=== PATIENT | female | born 1960 | race African-American/Black ===

== ENCOUNTER 2017-03-07 02:46 | Emergency (ER) | payer BC ==
[2016-01-11 13:01] VITALS: BMI 50.5
[~2017-03-07 02:46] MED LIST: BETAPACE 80 MG80 MG PO; BETIMOL15 ML EACH EYE; K-DUR20 MEQ PO; LASIX40 MG PO; NORVASC10 MG PO; TENORMIN50 MG PO; TRAVATAN Z2.5 ML EACH EYE; ZESTORETIC 20/21 TAB PO
== END 2017-03-07 04:07 | disposition home or self-care (01) ==
LOC: D.ER 02:46
DX: T14.8 Other injury of unspecified body region (principal); X58.XXXA Exposure to other specified factors, initial encounter; Y93.89 Activity, other specified; Y92.89 Other specified places as the place of occurrence of the external cause; I10 Essential (primary) hypertension; I50.9 Heart failure, unspecified; G47.30 Sleep apnea, unspecified

== ENCOUNTER → 2018-09-24 18:11 | Outpatient (CLI) | payer BC ==
[2016-01-11 13:01] VITALS: BMI 50.5
== END | disposition home or self-care (01) ==
LOC: D.MAMMO 10:15
DX: Z12.31 Encounter for screening mammogram for malignant neoplasm of breast (principal)

== ENCOUNTER → 2019-05-27 12:59 | Outpatient (CLI) | payer BC ==
[2016-01-11 13:01] VITALS: BMI 50.5
--- NOTE | ~2019-05-27 | EC ---
PATIENT:FRANKLIN OLIVAS DATE OF SERVICE: 05/27/19 SEX: F MEDICAL RECORD: [id number] DATE OF : 60 LOCATION:[facility] AGE OF PATIENT: 58 ADMISSION DATE: 05/27/19 REFERRING PHYSICIAN: INTERPRETING PHYSICIAN: HONG WINKLER MD ECHOCARDIOGRAM REPORT ECHO CHARGES 4 ECHO COMPLETE Date: 05/27/19 CLINICAL DIAGNOSIS: MR H/O A-FIB/HTN ECHOCARDIOGRAPHIC MEASUREMENTS (adult normal given) AC root (d.<3.7cm) 2.5 cm LV Septum d (<1.2 cm> 1.3 cm Valve Excursion 1.4 cm LV Septum (systole) 1.8 cm Left Atria (s.<4.0cm> 4.6 cm LVPW d(<1.2cm) 1.2 cm RV (d.<2.3cm) 2.7 cm LVPW (sytole) 1.5 cm LV diastole(<5.6CM) 2.2 cm MV E-F(>70mm/sec) cm LV systole 0.6 cm LVOT Diameter 2.3 cm MV exc.(>10mm) cm Est.ejection fraction (50-75%) % DOPPLER: LVIT cm/sec A 56.0 cm/sec E 64.0 cm/sec LA cm/sec RVSP 19.2 mmHg LVOT 111 cm/sec AOP1/2T m/s Asc. Ao 159 cm/sec RVOT 47.0 cm/sec RA cm/sec PA 121 cm/sec AV Gradient Peak 10.1 mmHg AV Mean 5.2 mmHg AV Area 3.7 cm MV Gradient Peak 3.6 mmHg MV Mean 1.4 mmHg MV Area cm COMMENTS: OP - HC Residential Energy Auditor: Travon AMADOOE Scratch Polisher: 1 Dr. Winkler TAPE# PACS Pericardial Effusion N DATE OF SERVICE: 05/27/2019 FINDINGS: 1. Left ventricular chamber size is within normal limits. Left ventricular systolic function is normal. Overall ejection fraction is estimated at 55%. 2. Left ventricular hypertrophy is present and concentric with no evidence of outflow tract hypertrophy. 3. Left atrium is enlarged at 4.6 cm. Right atrium and right ventricular chamber sizes are as well mildly dilated. 4. Valvular structures have normal structure and motion. ECHOCARDIOGRAM REPORT [id number] RFANKLIN OLIVAS 5. Doppler interrogation reveals no significant valvular insufficiency or stenosis. 6. No evidence of pericardial effusion or left ventricular thrombus. TRANSINT:[id number] Voice Confirmation ID: [id number] DOCUMENT ID: [id number] HONG WINKLER MD CC: [id number] DICTATION DATE: 05/27/19 145 DOORKEEPER: 05/27/[address] [facility] [address] [id number]
== END | disposition home or self-care (01) ==
LOC: D.HCCARDIO 12:59
PROVIDERS: ATTEND Internal Medicine Interventional Cardiology
DX: I34.0 Nonrheumatic mitral (valve) insufficiency (principal); I48.91 Unspecified atrial fibrillation; I10 Essential (primary) hypertension

== ENCOUNTER 2020-07-25 06:20 | Day surgery (SDC) | payer BC ==
[2020-07-22 12:30] LABS: BASOPHILS 0.1 % (0-2); HEMATOCRIT 43.1 % (36.0-48.0); HEMOGLOBIN 13.7 g/dL (12-16); IMMATURE GRANULOCYTES 0.1 % (0-5); LYMPHOCYTES 31.1 % (15-50); MCH 30.2 pg (26.0-34.0); MCHC 31.8 g/dL (31.0-37.0); MCV 94.9 fL (80.0-100.0); MEAN PLATELET VOLUME 9.6 fL (7.4-10.4); MONOCYTES 10.1 % (2-11); NEUTROPHILS 54.6 % (40-80); PLATELET COUNT 236 10x3/uL (130-400); RBC 4.54 10x6/uL (4.00-5.40); RDW 14.3 % (11.5-14.5); WBC 7.2 10x3/uL (4.8-10.8)
[2020-07-22 12:47] LABS: ANION GAP 6.9 mmol/L (8-16); CALCIUM 9.3 mg/dL (8.5-10.1); CARBON DIOXIDE 32.8 mmol/L (21.0-32.0); POTASSIUM - SERUM 4.7 mmol/L (3.5-5.1)
[~2020-07-25] VITALS: Ht 152.4 cm; Wt 116.1 kg
--- NOTE | ~2020-07-25 | OP ---
PATIENT NAME: FRANKLIN OLIVAS MEDICAL RECORD: [id number] :60 LOCATION:[facility] ADMISSION DATE: SURGEON: ULYSSES SCHMITT MD DATE OF OPERATION: 07/25/2020 PREOPERATIVE DIAGNOSIS: Postmenopausal bleeding. POSTOPERATIVE DIAGNOSIS: Postmenopausal bleeding. PROCEDURE: Exam under anesthesia. SURGEON: Ulysses Schmitt MD WORKFORCE MANAGEMENT COORDINATOR: BLANKA Long. ANESTHESIA: Ethan ANESTHESIOLOGIST: Dr. Cabezas ANESTHETIC: LMA. FINDINGS: Vaginal vault is unremarkable. Redundant tissue in the vaginal vault prevented adequate visualization of the cervix despite use of various technique and speculum sizes. SPECIMENS REMOVED: None. SPECIMEN DISPOSITION: None applicable. ESTIMATED BLOOD LOSS: Less than 500 cc of lactated Ringer's. URINE OUTPUT: Quantity sufficient void prior to this procedure. COMPLICATIONS: None. ESTIMATED BLOOD LOSS: None. INDICATIONS: The patient is a 60-year-old female with persistent postmenopausal bleeding and unable to perform endometrial biopsy in clinic. The patient has been consented for exam under anesthesia and D&C. DESCRIPTION OF PROCEDURE: After informed consent was assured, the patient was taken to the operating room where anesthetic was obtained. The patient was placed in Vinny stirrups and prepped and draped in the usual sterile fashion. An operative speculum was introduced in the vagina and the patient with redundant vaginal tissue preventing adequate visualization. Due to The patient's anesthetics and the lack of ability to place in Trendelenburg position and despite father use of different vaginal retractors and speculum. The cervix was never adequately visualized. The exam under anesthesia failed to demonstrate any masses. The procedure was abandoned and the patient was awakened and went to the recovery area in stable condition. TRANSINT:[id number] Voice Confirmation ID: [id number] DOCUMENT ID: [id number] OPERATIVE REPORT [id number] FRANKLIN OLIVAS ULYSSES SCHMITT MD CC: [id number] DICTATION DATE: 08/03/20 1429 ACTIVITY THERAPY TEACHER: 08/03/20 1458 [facility] 07/25/[address] [id number]
[~2020-07-25 06:20] MED LIST changes: +ALDACTONE25 MG PO; +BAYER CHEWABLE81 MG PO; +FUROSEMIDE20 MG PO; +LIPITOR20 MG PO; +TIMOPTIC 0.25% O5 M1 EACH EYE; +ZYLOPRIM300 MG PO
[2020-07-25 07:09] VITALS: BP 125/75; Ht 152.4 cm; Wt 116.1 kg
--- NOTE | 2020-07-25 13:17 | NUR ---
1315 DR. KESHIA NICOLE.
== END 2020-07-25 14:10 | disposition home or self-care (01) ==
LOC: D.OPS 06:20 → D.PAN 07:00 → D.OPS 07:00
PROVIDERS: Anesthesiology; ATTEND Obstetrics & Gynecology
DX: N95.0 Postmenopausal bleeding (principal); I10 Essential (primary) hypertension; I50.9 Heart failure, unspecified; Z98.890 Other specified postprocedural states